=== PATIENT | female | born 1970 | race Caucasian/White ===

== ENCOUNTER → 2016-09-26 | Outpatient (CLI) | payer BC, MEDICAID ==
[~2016-09-26] MED LIST: LOTREL 10-40 M1 EACH PO; NORCO 5-325 MG1 TAB PO; ZOLOFT100 MG PO; [UNRECOGNIZED DRUG - OTHER] PO
== END | disposition disaster alternative care site (69) ==
LOC: GRAD 12:38
DX: M25.562 Pain in left knee (principal); M25.462 Effusion, left knee; M65.862 Other synovitis and tenosynovitis, left lower leg